=== PATIENT | male | born 1955 | race Caucasian/White ===

== ENCOUNTER 2016-09-05 18:39 | Observation (INO) | payer BC, OTHER ==
[2016-09-05] MEDS ORDERED: Morphine 2 MG/ML Syringe IVPUSH ONE (19:20)
[2016-09-05] MEDS ORDERED: Sodium Chloride 0.9% 1,000 ML IV ONE (19:20)
[2016-09-05] MEDS ORDERED: Sodium Chloride 0.9% 2.5 ML Syringe FLUSH PRN (19:20)
[2016-09-05] MEDS ORDERED: Ondansetron 4 MG/2 ML SDV IVPUSH ONE (19:20)
[2016-09-05] MEDS ORDERED: Pantoprazole 40 MG Vial IVPUSH ONE (19:20)
--- NOTE | 2016-09-05 19:25 | EDM.PDOC ---
ED HPI GENERAL MEDICAL PROBLEM - General Chief Complaint: Abdominal Pain Stated Complaint: SEVERE STOMACH PAIN Time Seen by Provider: 09/05/16 19:06 - History of Present Illness INITIAL COMMENTS - FREE TEXT/NARRATIVE: HISTORY AND PHYSICAL: History of present illness: The patient is a 61-year-old male with no stated medical problems who presents with upper abdominal indigestion and discomfort and bloating-like feeling that started on Wednesday, 5-1/2 days ago. He says that he felt very bloated and felt as indigestion on Wednesday with some nausea but did not have vomiting or diarrhea. The pain seemed to go away on its own and he did fine through the week although the discomfort was still always there in a dull like fashion but very minimal. The discomfort woke him this morning at 4:30 and he's been trying to address that through the day with [id number] antacids. He had one episode of vomiting which was small in volume and was self-induced. He has had normal bowel movements which are not black or bloody and he has had no diarrhea. He's had no fever chills chest pain or shortness of breath and no urinary complaints. The patient states that the pain feels like he has "eaten to Thanksgiving dinners". The patient states that 6 weeks ago he was in the ER at [facility] in [place] for dehydration and had an EKG labs and IV fluids and felt improved. At that time he states that he did not have abdominal pain. The patient is concerned about his gallbladder because he does eat a lot of fatty foods and in fact last evening ate spareribs for dinner. Today he has had no appetite due to the discomfort and fullness and has had limited intake. The patient denies any previous abdominal surgical history. The patient denies that the pain radiates to his lower abdomen area or to his flank Review of systems: As per history of present illness and below otherwise all systems reviewed and negative. Past medical history: As per history of present illness and as reviewed below otherwise noncontributory. Surgical history: As per history of present illness and as reviewed below otherwise noncontributory. Social history: No reported history of drug or alcohol abuse. Family history: As per history of present illness and as reviewed below otherwise noncontributory. Physical exam: General: Well-developed well-nourished male who is nontoxic and vital signs have been noted by me. Easily in the ED without any distress HEENT: Atraumatic, normocephalic, pupils reactive, negative for conjunctival pallor or scleral icterus, mucous membranes moist, throat clear, neck supple, nontender, trachea midline. Lungs: Clear to auscultation, breath sounds equal bilaterally, chest nontender. Heart: S1S2, regular, negative for clicks, rubs, or JVD. Abdomen: Soft, nondistended, with mild tenderness in the right upper abdomen as well as the epigastrium without rebound or guarding. Bowel sounds are hypoactive Negative for masses or hepatosplenomegaly. Negative for costovertebral tenderness. Pelvis: Stable nontender. Genitourinary: Deferred. Rectal: Deferred. Extremities: Atraumatic, negative for cords or calf pain. Neurovascular unremarkable. Neuro: Awake, alert, oriented. Cranial nerves II through XII unremarkable. Cerebellum unremarkable. Motor and sensory unremarkable throughout. Exam nonfocal. Diagnostics: EKG CBC CMP amylase lipase troponin UA CT scan of the abdomen and pelvis Therapeutics: IV fluids Zofran Protonix morphine 2138: Case discussed with our surgeon Dr. Edmondson she is aware of the CT scan. She would like an ultrasound to be performed and the patient was made aware of all testing results up to this point. 2326: Ultrasound report was obtained and the surgeon has artery reviewed the ultrasound and will come in to see the patient 2335: Dr. Edmondson is here and at bedside discussing the care plan with the patient 2340: Dr. Edmondson is admitting the patient and will operate on him and his discussing this care plan with him. Impression: Acute cholecystitis Definitive disposition and diagnosis as appropriate pending reevaluation and review of above. abdomen Pain Score (Numeric/FACES): 5 - Related Data Allergies Allergy/AdvReac Type Severity Reaction Status Date / Time Penicillins Allergy Rash Verified 09/05/16 18:58 Home Meds: Home Meds . [No Known Home Meds] 09/05/16 [History] Past Medical History HEENT History: Reports: None Cardiovascular History: Reports: None Respiratory History: Reports: None Gastrointestinal History: Reports: None Genitourinary History: Reports: None Musculoskeletal History: Reports: None Neurological History: Reports: None Psychiatric History: Reports: None Endocrine/Metabolic History: Reports: None Hematologic History: Reports: None Immunologic History: Reports: None Oncologic (Cancer) History: Reports: None Dermatologic History: Reports: None - Infectious Disease History Infectious Disease History: Reports: Measles, Mumps - Past Surgical History Neurological Surgical History: Reports: Other (See Below) Other Neurological Surgeries/Procedures: concussion Social & Family History - Family History Family Medical History: Noncontributory - Tobacco Use Smoking Status *Q: Never Smoker - Caffeine Use Caffeine Use: Reports: Coffee - Recreational Drug Use Recreational Drug Use: No ED ROS GENERAL - Review of Systems Review Of Systems: ROS reveals no pertinent complaints other than HPI. ED EXAM, GENERAL - Physical Exam Exam: See Below (See dictation) Course - Vital Signs Last Recorded V/S: Last Vital Signs Temp 36.6 C 09/05/16 18:58 Pulse 59 L 09/05/16 20:35 Resp 17 09/05/16 20:35 BP 142/71 H 09/05/16 20:35 Pulse Ox 97 09/05/16 20:35 - Orders/Labs/Meds Orders: Active Orders 24 hr Category Date Time Status Patient Status [ADT] Stat ADT 09/05/16 23:38 Ordered EKG Documentation Completion [RC] STAT Care 09/05/16 19:20 Active Abdomen Ltd [US] Stat Exams 09/05/16 21:38 Taken Abdomen Pelvis w Cont [CT] Stat Exams 09/05/16 19:20 Taken Sodium Chloride 0.9% [Saline Flush] Med 09/05/16 19:20 Active 10 ml FLUSH ASDIRECTED PRN Sodium Chloride 0.9% [Saline Flush] Med 09/05/16 19:20 Active 2.5 ml FLUSH ASDIRECTED PRN Saline Lock Insert [OM.PC] Stat Oth 09/05/16 19:19 Ordered Medication Orders Sodium Chloride (Saline Flush) 10 ml FLUSH ASDIRECTED PRN PRN Reason: Keep Vein Open Last Admin: 09/05/16 19:58 Dose: 10 ml Admin: 09/05/16 19:50 Dose: 10 ml Admin: 09/05/16 19:48 Dose: 10 ml Sodium Chloride (Saline Flush) 2.5 ml FLUSH ASDIRECTED PRN PRN Reason: Keep Vein Open Last Admin: 09/05/16 19:53 Dose: 2.5 ml Labs: Laboratory Tests 0509/05/16 09/05/16 Range/Units 19:45 19:45 19:45 WBC 9.45 (4.0-11.0) K/uL RBC 5.38 (4.50-5.90) M/uL Hgb 15.9 (13.0-17.0) g/dL Hct 44.5 (38.0-50.0) % MCV 82.7 (80.0-98.0) fL MCH 29.6 (27.0-32.0) pg MCHC 35.7 (31.0-37.0) g/dL RDW Std Deviation 38.2 (28.0-62.0) fl RDW Coeff of Liana 13 (11.0-15.0) % Plt Count 194 (150-400) K/uL MPV 10.20 (7.40-12.00) fL Neut % (Auto) 73.1 (48.0-80.0) % Lymph % (Auto) 16.4 (16.0-40.0) % [place] % (Auto) 9.7 (0.0-15.0) % Eos % (Auto) 0.7 (0.0-7.0) % Baso % (Auto) 0.1 (0.0-1.5) % Neut # (Auto) 6.9 H (1.4-5.7) K/uL Lymph # (Auto) 1.6 (0.6-2.4) K/uL [place] # (Auto) 0.9 H (0.0-0.8) K/uL Eos # (Auto) 0.1 (0.0-0.7) K/uL Baso # (Auto) 0.0 (0.0-0.1) K/uL Nucleated RBC % 0.0 /100WBC Nucleated RBCs # 0 K/uL Sodium 139 (136-146) mmol/L Potassium 3.8 (3.5-5.1) mmol/L Chloride 105 (98-110) mmol/L Carbon Dioxide 23 (21-31) mmol/L BUN 8 (6.0-23.0) mg/dL Creatinine 1.0 (0.6-1.5) mg/dL Est Cr Clr Drug Dosing 82.62 mL/min Estimated GFR (MDRD) > 60.0 ml/min Glucose 105 (60-110) mg/dL Calcium 9.8 (8.8-10.8) mg/dL Total Bilirubin 1.0 (0.1-1.5) mg/dL AST 20 (5-40) IU/L ALT 26 (8-54) IU/L Alkaline Phosphatase 48 (40-150) Troponin I < 0.10 (0.0-0.29) NG/ML Total Protein 7.3 (6.0-8.0) g/dL Albumin 4.5 (3.4-4.8) g/dL Globulin 2.8 (2.0-3.5) g/dL Albumin/Globulin Ratio 1.6 (1.3-2.8) Amylase 34 (10-90) U/L Lipase 20 (7-80) U/L Urine Color Urine Appearance Urine pH (5.0-8.0) Ur Specific [place] (1.001-1.035) Urine Protein (NEGATIVE) mg/dL Urine Glucose (UA) (NEGATIVE) mg/dL Urine Ketones (NEGATIVE) mg/dL Urine Occult Blood (NEGATIVE) Urine Nitrite (NEGATIVE) Urine Bilirubin (NEGATIVE) Urine Urobilinogen (<2.0) EU/dL Ur Leukocyte Esterase (NEGATIVE) Urine RBC (0-2/HPF) Urine WBC (0-5/HPF) Ur Epithelial Cells (NONE-FEW) Urine Bacteria (NEGATIVE) 09/05/16 Range/Units 19:46 WBC (4.0-11.0) K/uL RBC (4.50-5.90) M/uL Hgb (13.0-17.0) g/dL Hct (38.0-50.0) % MCV (80.0-98.0) fL MCH (27.0-32.0) pg MCHC (31.0-37.0) g/dL RDW Std Deviation (28.0-62.0) fl RDW Coeff of Liana (11.0-15.0) % Plt Count (150-400) K/uL MPV (7.40-12.00) fL Neut % (Auto) (48.0-80.0) % Lymph % (Auto) (16.0-40.0) % [place] % (Auto) (0.0-15.0) % Eos % (Auto) (0.0-7.0) % Baso % (Auto) (0.0-1.5) % Neut # (Auto) (1.4-5.7) K/uL Lymph # (Auto) (0.6-2.4) K/uL [place] # (Auto) (0.0-0.8) K/uL Eos # (Auto) (0.0-0.7) K/uL Baso # (Auto) (0.0-0.1) K/uL Nucleated RBC % /100WBC Nucleated RBCs # K/uL Sodium (136-146) mmol/L Potassium (3.5-5.1) mmol/L Chloride (98-110) mmol/L Carbon Dioxide (21-31) mmol/L BUN (6.0-23.0) mg/dL Creatinine (0.6-1.5) mg/dL Est Cr Clr Drug Dosing mL/min Estimated GFR (MDRD) ml/min Glucose (60-110) mg/dL Calcium (8.8-10.8) mg/dL Total Bilirubin (0.1-1.5) mg/dL AST (5-40) IU/L ALT (8-54) IU/L Alkaline Phosphatase (40-150) Troponin I (0.0-0.29) NG/ML Total Protein (6.0-8.0) g/dL Albumin (3.4-4.8) g/dL Globulin (2.0-3.5) g/dL Albumin/Globulin Ratio (1.3-2.8) Amylase (10-90) U/L Lipase (7-80) U/L Urine Color YELLOW Urine Appearance CLEAR Urine pH 7.0 (5.0-8.0) Ur Specific [place] <= 1.005 (1.001-1.035) Urine Protein NEGATIVE (NEGATIVE) mg/dL Urine Glucose (UA) NEGATIVE (NEGATIVE) mg/dL Urine Ketones NEGATIVE (NEGATIVE) mg/dL Urine Occult Blood NEGATIVE (NEGATIVE) Urine Nitrite NEGATIVE (NEGATIVE) Urine Bilirubin NEGATIVE (NEGATIVE) Urine Urobilinogen 0.2 (<2.0) EU/dL Ur Leukocyte Esterase NEGATIVE (NEGATIVE) Urine RBC NONE SEEN (0-2/HPF) Urine WBC 0-1 (0-5/HPF) Ur Epithelial Cells NOT SEEN (NONE-FEW) Urine Bacteria RARE (NEGATIVE) Meds: Medications Generic Name Dose Route Start Last Admin Trade Name Tara PRN Reason Stop Dose Admin Sodium Chloride 10 ml 09/05/16 19:20 09/05/16 19:58 Saline Flush FLUSH 10 ml ASDIRECTED PRN Administration Keep Vein Open Sodium Chloride 2.5 ml 09/05/16 19:20 09/05/16 19:53 Saline Flush FLUSH 2.5 ml ASDIRECTED PRN Administration Keep Vein Open Discontinued Medications Generic Name Dose Route Start Last Admin Trade Name Tara PRN Reason Stop Dose Admin Sodium Chloride 1,000 mls @ 999 mls/hr 09/05/16 19:20 09/05/16 19:47 Normal Saline IV 09/05/16 20:20 999 mls/hr STAT ONE Administration Iopamidol 95 ml 09/05/16 20:33 09/05/16 20:34 Isovue Multipack-370 (76%) IVPUSH 09/05/16 20:34 95 ml ONETIME STA Administration Morphine Sulfate 4 mg 09/05/16 19:20 09/05/16 19:50 Morphine IVPUSH 09/05/16 19:21 4 mg ONETIME ONE Administration Ondansetron HCl 4 mg 09/05/16 19:20 09/05/16 19:49 Zofran IVPUSH 09/05/16 19:21 4 mg ONETIME ONE Administration Pantoprazole Sodium 80 mg 09/05/16 19:20 09/05/16 19:54 Protonix Iv IVPUSH 09/05/16 19:21 80 mg .BOLUS ONE Administration Departure - Departure Time of Disposition: 23:40 Disposition: Refer to Observation Condition: good Clinical Impression: Cholecystitis - Discharge Information Forms: ED Department Discharge - My Orders Last 24 Hours: My Active Orders 09/05/16 19:19 Saline Lock Insert [OM.PC] Stat 09/05/16 19:20 EKG Documentation Completion [RC] STAT Abdomen Pelvis w Cont [CT] Stat Sodium Chloride 0.9% [Saline Flush] 10 ml FLUSH ASDIRECTED PRN Sodium Chloride 0.9% [Saline Flush] 2.5 ml FLUSH ASDIRECTED PRN 09/05/16 21:38 Abdomen Ltd [US] Stat 09/05/16 23:38 Patient Status [ADT] Stat - Assessment/Plan Last 24 Hours: My Active Orders 09/05/16 19:19 Saline Lock Insert [OM.PC] Stat 09/05/16 19:20 EKG Documentation Completion [RC] STAT Abdomen Pelvis w Cont [CT] Stat Sodium Chloride 0.9% [Saline Flush] 10 ml FLUSH ASDIRECTED PRN Sodium Chloride 0.9% [Saline Flush] 2.5 ml FLUSH ASDIRECTED PRN 09/05/16 21:38 Abdomen Ltd [US] Stat 09/05/16 23:38 Patient Status [ADT] Stat
[2016-09-05] MEDS: Sodium Chloride 0.9% 10 ML Syringe FLUSH PRN ×3 (19:48→19:58)
[2016-09-05 20:08] LABS: CHLORIDE,CL 105 mmol/L (98-110); SODIUM,NA 139 mmol/L (136-146)
[2016-09-05] MEDS ORDERED: Iopamidol 755 MG/ML 500 ML Multipack Bottle IVPUSH STA (20:33)
[2016-09-06] MEDS ORDERED: diphenhydrAMINE 50 MG/ML SDV IVPUSH PRN (00:07)
[2016-09-06] MEDS ORDERED: Ondansetron 4 MG/2 ML SDV IVPUSH PRN (00:07)
--- NOTE | 2016-09-06 00:30 | PCM.HP ---
H&P History of Present Illness - General Date of Service: 09/06/16 Admit Problem/Dx: Acute cholecystitis Source of Information: Patient History Limitations: Reports: No Limitations - History of Present Illness Initial Comments - Free Text/Narative: Patient is a 61 yo M who presents with acute onset of RUQ this morning @ 430am. The night before he had eaten ribs. He woke up at 430 feeling like he had indigestion and bloating with a focus of pain in the RUQ under the right subcostal area. He developed a similar pain last wednesday but this slowly went away after 12 hours. This was after a fatty meal as well. He denies nausea, vomiting, fevers, chills, malaise or change in his bowel habits. The pain has not worsened but did not go away so he presented to the ED for workup. abdomen Pain Score (Numeric/FACES): 2 - Related Data Allergies/Adverse Reactions: Allergies Allergy/AdvReac Type Severity Reaction Status Date / Time Penicillins Allergy Rash Verified 09/05/16 18:58 Home Medications: Home Meds . [No Known Home Meds] 09/05/16 [History] Past Medical History HEENT History: Reports: None Cardiovascular History: Reports: None Respiratory History: Reports: None Gastrointestinal History: Reports: None Genitourinary History: Reports: None Musculoskeletal History: Reports: None Neurological History: Reports: None Psychiatric History: Reports: None Endocrine/Metabolic History: Reports: None Hematologic History: Reports: None Immunologic History: Reports: None Oncologic (Cancer) History: Reports: None Dermatologic History: Reports: None - Infectious Disease History Infectious Disease History: Reports: Measles, Mumps - Past Surgical History Male Surgical History: Reports: Varicocele Resection Neurological Surgical History: Reports: Other (See Below) Other Neurological Surgeries/Procedures: concussion Social & Family History - Family History Family Medical History: Noncontributory - Tobacco Use Smoking Status *Q: Never Smoker - Caffeine Use Caffeine Use: Reports: Coffee - Recreational Drug Use Recreational Drug Use: No H&P Review of Systems - Review of Systems: Review Of Systems: See Below General: Reports: No Symptoms HEENT: Reports: No Symptoms Pulmonary: Reports: No Symptoms Cardiovascular: Reports: No Symptoms Gastrointestinal: Reports: Abdominal Pain, Decreased Appetite Genitourinary: Reports: No Symptoms Musculoskeletal: Reports: No Symptoms Skin: Reports: No Symptoms Psychiatric: Reports: No Symptoms Neurological: Reports: No Symptoms Hematologic/Lymphatic: Reports: No Symptoms Exam - Exam Exam: See Below - Vital Signs Vital Signs: Last Vital Signs Temp 36.6 C 09/05/16 18:58 Pulse 64 09/06/16 00:15 Resp 16 09/06/16 00:15 BP 160/83 H 09/06/16 00:15 Pulse Ox 97 09/06/16 00:15 Weight: 91.2 kg - Exam General: Alert, Oriented HEENT: Conjunctiva Clear, EOMI, Mucosa Moist & [place], Nares Patent, Pupils Reactive Neck: Supple Lungs: Clear to Auscultation, Normal Respiratory Effort Cardiovascular: Regular Rate, Regular Rhythm Abdomen: Normal Bowel Sounds, Soft, Swann's Sign, Other (small pin point umbilical hernia, easily reducible ) Back Exam: Normal Inspection Neuro Extensive - Mental Status: Alert, Oriented x3, Normal Mood/Affect, Normal Cognition, Memory Intact - Patient Data Result Diagrams: 09/05/16 19:45 09/05/16 19:45 *Q Meaningful Use (ADM) - VTE *Q VTE Criteria *Q: - Stroke *Q Stroke Criteria *Q: - AMI *Q AMI Criteria *Q: - Problem List (1) Cholecystitis SNOMED Code(s): 78124620 ICD Code: K81.9 - CHOLECYSTITIS, UNSPECIFIED Status: Acute Current Visit : Yes Problem List Initiated/Reviewed/Updated: Yes Orders Last 24hrs: Active Orders 24 hr Category Date Time Status Cefuroxime [Zinacef] 1.5 gm Med 09/06/16 06:00 Ordered Sodium Chloride 0.9% [Normal Saline] 50 ml IV Q8HR Medication Orders Diphenhydramine HCl (Benadryl) 25 mg IVPUSH Q4H PRN PRN Reason: Itching Hydromorphone HCl (Dilaudid) 0.5 mg IVPUSH Q1H PRN PRN Reason: Pain (severe 7-10) Lactated Ringer's (Ringers, Lactated) 1,000 mls @ 125 mls/hr IV ASDIRECTED BARB Cefuroxime Sodium 1.5 gm/ (Sodium Chloride) 50 mls @ 100 mls/hr IV Q8HR BARB Ondansetron HCl (Zofran) 4 mg IVPUSH Q6H PRN PRN Reason: Nausea/Vomiting Sodium Chloride (Saline Flush) 10 ml FLUSH ASDIRECTED PRN PRN Reason: Keep Vein Open Last Admin: 09/05/16 19:58 Dose: 10 ml Admin: 09/05/16 19:50 Dose: 10 ml Admin: 09/05/16 19:48 Dose: 10 ml Sodium Chloride (Saline Flush) 2.5 ml FLUSH ASDIRECTED PRN PRN Reason: Keep Vein Open Last Admin: 09/05/16 19:53 Dose: 2.5 ml Assessment/Plan Comment:: Patient has signs and symptoms of acute calculus cholecystitis. His CT of the abdomen showed thickened GB wall and pericholecystic fluid which was confirmed by US. He has no lab or imaging findings that would suggest choledocholithiasis. There is a chance this could be gangrenous but the only way to know is during surgery. He is mildly-moderately tender in the RUQ but states that the pain medication has helped. Early cholecystectomy, rather than delayed cholecystectomy (>7 days after admission), is preferable for patients who require hospitalization for acute cholecystitis and who are good candidates for cholecystectomy. He is healthy with no past medical problems. Will start him on antibiotics, start IVF, keep him NPO, and plan for surgery tomorrow. We discussed the pathophysiology of acute calculous cholecystitis. We discussed laparoscopic and open cholecystectomy. Should I be unable to perform this safely laparoscopically we will convert to open. Given that he is acutely inflamed, he is at increased risk for conversion to open. We discussed the risks including bleeding, infection, bile leak, and damage to surrounding structure. The patient is agreeable to blood products should he need them. We may need to leave a drain depending on the operative findings. He verbalized understanding and wishes to proceed.
[2016-09-06] MEDS: HYDROmorphone 1 MG/ML Syringe IVPUSH PRN ×2 (00:41→05:20)
[2016-09-06] MEDS: Lactated Ringers 1,000 ML IV SCH ×2 (00:50→09:03)
[2016-09-06 05:47] LABS: CHLORIDE,CL 107 mmol/L (98-110); SODIUM,NA 141 mmol/L (136-146)
[2016-09-06] MEDS ORDERED: Propofol 200 MG/20 ML SDV ONE (10:24)
[2016-09-06] MEDS ORDERED: Succinylcholine/Normal Saline 200 MG/10 ML Syringe ONE (10:24)
[2016-09-06] MEDS ORDERED: Lidocaine 2% 5 ML SDV ONE (10:24)
[2016-09-06] MEDS ORDERED: fentaNYL 250 MCG/5 ML SDV ONE (10:24)
[2016-09-06] MEDS ORDERED: Ondansetron 4 MG/2 ML SDV ONE (10:24)
[2016-09-06] MEDS ORDERED: Rocuronium 10 MG/ML 10 ML Syringe ONE (10:24)
[2016-09-06] MEDS ORDERED: Midazolam 1 MG/ML 2 ML SDV ONE (10:24)
[2016-09-06] MEDS ORDERED: Bupivacaine 0.5% 30 ML SDV ONE (11:26)
[2016-09-06] MEDS ORDERED: Phenylephrine/Normal Saline 100 MCG/ML 10 ML Syringe ONE (12:02)
[2016-09-06] MEDS ORDERED: ePHEDrine 50 MG/ML SDV ONE (12:06)
--- NOTE | 2016-09-06 12:19 | PCM.PREANE ---
Preanesthetic Assessment - Anesthesia/Transfusion/Family Hx Anesthesia History: Prior Anesthesia Without Reaction Transfusion History: No Prior Transfusion(s) - Review of Systems General: No Symptoms Pulmonary: No Symptoms Cardiovascular: No Symptoms Gastrointestinal: No symptoms Neurological: No Symptoms Other: Reports: None - Physical Assessment NPO Status Date: 09/06/16 NPO Status Time: 00:00 Pulse: 70 O2 Sat by Pulse Oximetry: 96 Respiratory Rate: 18 Blood Pressure: 97/50 Vital Signs: Last Vital Signs Temp 98.1 F 09/06/16 10:49 Pulse 66 09/06/16 10:49 Resp 18 09/06/16 10:49 BP 121/73 09/06/16 10:49 Pulse Ox 96 09/06/16 10:49 Height: 5 ft 11 in Weight: 91.2 kg ASA Class: 2E Mental Status: Alert & Oriented x3 Airway Class: Mallampati = 3 Dentition: Reports: Normal Dentition, Implants (x1) Thyro-Mental Finger Breadths: 3 Mouth Opening Finger Breadths: 3 ROM/Head Extension: Limited/Partial Lungs: Clear to auscultation, Normal respiratory effort Cardiovascular: Regular Rate, Regular Rhythm - Lab Values: Laboratory Last Values WBC 6.59 K/uL (4.0-11.0) 09/06/16 05:00 RBC 4.86 M/uL (4.50-5.90) 09/06/16 05:00 Hgb 14.1 g/dL (13.0-17.0) 09/06/16 05:00 Hct 41.3 % (38.0-50.0) 09/06/16 05:00 MCV 85.0 fL (80.0-98.0) 09/06/16 05:00 MCH 29.0 pg (27.0-32.0) 09/06/16 05:00 MCHC 34.1 g/dL (31.0-37.0) 09/06/16 05:00 RDW Std Deviation 39.5 fl (28.0-62.0) 09/06/16 05:00 RDW Coeff of Liana 13 % (11.0-15.0) 09/06/16 05:00 Plt Count 171 K/uL (150-400) 09/06/16 05:00 MPV 10.40 fL (7.40-12.00) 09/06/16 05:00 Neut % (Auto) 57.5 % (48.0-80.0) 09/06/16 05:00 Lymph % (Auto) 27.9 % (16.0-40.0) 09/06/16 05:00 [place] % (Auto) 12.7 % (0.0-15.0) 09/06/16 05:00 Eos % (Auto) 1.7 % (0.0-7.0) 09/06/16 05:00 Baso % (Auto) 0.2 % (0.0-1.5) 09/06/16 05:00 Neut # (Auto) 3.8 K/uL (1.4-5.7) 09/06/16 05:00 Lymph # (Auto) 1.8 K/uL (0.6-2.4) 09/06/16 05:00 [place] # (Auto) 0.8 K/uL (0.0-0.8) 09/06/16 05:00 Eos # (Auto) 0.1 K/uL (0.0-0.7) 09/06/16 05:00 Baso # (Auto) 0.0 K/uL (0.0-0.1) 09/06/16 05:00 Nucleated RBC % 0.0 /100WBC 09/06/16 05:00 Nucleated RBCs # 0 K/uL 09/06/16 05:00 Sodium 141 mmol/L (136-146) 09/06/16 05:00 Potassium 4.5 mmol/L (3.5-5.1) 09/06/16 05:00 Chloride 107 mmol/L (98-110) 09/06/16 05:00 Carbon Dioxide 27 mmol/L (21-31) 09/06/16 05:00 BUN 7 mg/dL (6.0-23.0) 09/06/16 05:00 Creatinine 1.1 mg/dL (0.6-1.5) 09/06/16 05:00 Est Cr Clr Drug Dosing 75.11 mL/min 09/06/16 05:00 Estimated GFR (MDRD) > 60.0 ml/min 09/06/16 05:00 Glucose 111 mg/dL (60-110) H 09/06/16 05:00 Calcium 9.0 mg/dL (8.8-10.8) 09/06/16 05:00 Total Bilirubin 0.9 mg/dL (0.1-1.5) 09/06/16 05:00 AST 17 IU/L (5-40) 09/06/16 05:00 ALT 21 IU/L (8-54) 09/06/16 05:00 Alkaline Phosphatase 43 (40-150) 09/06/16 05:00 Troponin I < 0.10 NG/ML (0.0-0.29) 09/05/16 19:45 Total Protein 5.9 g/dL (6.0-8.0) L 09/06/16 05:00 Albumin 3.8 g/dL (3.4-4.8) 09/06/16 05:00 Globulin 2.1 g/dL (2.0-3.5) 09/06/16 05:00 Albumin/Globulin Ratio 1.8 (1.3-2.8) 09/06/16 05:00 Amylase 34 U/L (10-90) 09/05/16 19:45 Lipase 20 U/L (7-80) 09/05/16 19:45 Urine Color YELLOW 09/05/16 19:46 Urine Appearance CLEAR 09/05/16 19:46 Urine pH 7.0 (5.0-8.0) 09/05/16 19:46 Ur Specific [place] <= 1.005 (1.001-1.035) 09/05/16 19:46 Urine Protein NEGATIVE mg/dL (NEGATIVE) 09/05/16 19:46 Urine Glucose (UA) NEGATIVE mg/dL (NEGATIVE) 09/05/16 19:46 Urine Ketones NEGATIVE mg/dL (NEGATIVE) 09/05/16 19:46 Urine Occult Blood NEGATIVE (NEGATIVE) 09/05/16 19:46 Urine Nitrite NEGATIVE (NEGATIVE) 09/05/16 19:46 Urine Bilirubin NEGATIVE (NEGATIVE) 09/05/16 19:46 Urine Urobilinogen 0.2 EU/dL (<2.0) 09/05/16 19:46 Ur Leukocyte Esterase NEGATIVE (NEGATIVE) 09/05/16 19:46 Urine RBC NONE SEEN (0-2/HPF) 09/05/16 19:46 Urine WBC 0-1 (0-5/HPF) 09/05/16 19:46 Ur Epithelial Cells NOT SEEN (NONE-FEW) 09/05/16 19:46 Urine Bacteria RARE (NEGATIVE) 09/05/16 19:46 - Allergies Allergies/Adverse Reactions: Allergies Allergy/AdvReac Type Severity Reaction Status Date / Time Penicillins Allergy Rash Verified 09/05/16 18:58 - Acknowledgements Anesthesia Type Planned: General Anesthesia (RSI) Pt an Appropriate Candidate for the Planned Anesthesia: Yes Alternatives and Risks of Anesthesia Discussed w Pt/Guardian: Yes Pt/Guardian Understands and Agrees with Anesthesia Plan: Yes PreAnesthesia Questionnaire HEENT History: Reports: None Cardiovascular History: Reports: Other (See Below) (New Hx of ectopic beats, PVC vs PAC) Respiratory History: Reports: None Gastrointestinal History: Reports: Cholelithiasis Genitourinary History: Reports: None Musculoskeletal History: Reports: None Neurological History: Reports: None Psychiatric History: Reports: Anxiety Endocrine/Metabolic History: Reports: None Hematologic History: Reports: None Immunologic History: Reports: None Oncologic (Cancer) History: Reports: None Dermatologic History: Reports: None - Infectious Disease History Infectious Disease History: Reports: Measles, Mumps - Past Surgical History Male Surgical History: Reports: Varicocele Resection Neurological Surgical History: Reports: Other (See Below) Other Neurological Surgeries/Procedures: concussion - SUBSTANCE USE Smoking Status *Q: Never Smoker Recreational Drug Use History: No - HOME MEDS Home Medications: Home Meds . [No Known Home Meds] 09/05/16 [History] - CURRENT (IN HOUSE) MEDS Current Meds: Current Medications Diphenhydramine HCl (Benadryl) 25 mg IVPUSH Q4H PRN PRN Reason: Itching Hydromorphone HCl (Dilaudid) 0.5 mg IVPUSH Q1H PRN PRN Reason: Pain (severe 7-10) Last Admin: 09/06/16 05:20 Dose: 0.5 mg Lactated Ringer's (Ringers, Lactated) 1,000 mls @ 125 mls/hr IV ASDIRECTED BARB Last Admin: 09/06/16 09:03 Dose: 125 mls/hr Cefuroxime Sodium 1.5 gm/ (Sodium Chloride) 50 mls @ 100 mls/hr IV Q8H BARB Last Admin: 09/06/16 09:05 Dose: 100 mls/hr Ondansetron HCl (Zofran) 4 mg IVPUSH Q6H PRN PRN Reason: Nausea/Vomiting Sodium Chloride (Saline Flush) 10 ml FLUSH ASDIRECTED PRN PRN Reason: Keep Vein Open Last Admin: 09/05/16 19:58 Dose: 10 ml Sodium Chloride (Saline Flush) 2.5 ml FLUSH ASDIRECTED PRN PRN Reason: Keep Vein Open Last Admin: 09/05/16 19:53 Dose: 2.5 ml Discontinued Medications Bupivacaine HCl (Marcaine 0.5%) Confirm Administered Dose 30 ml .ROUTE .STK-MED ONE Stop: 09/06/16 11:27 Ephedrine Sulfate (Ephedrine Sulfate) Confirm Administered Dose 50 mg .ROUTE .STK-MED ONE Stop: 09/06/16 12:07 Fentanyl (Sublimaze) Confirm Administered Dose 250 mcg .ROUTE .STK-MED ONE Stop: 09/06/16 10:25 Sodium Chloride (Normal Saline) 1,000 mls @ 999 mls/hr IV STAT ONE Stop: 09/05/16 20:20 Last Admin: 09/05/16 19:47 Dose: 999 mls/hr Cefuroxime Sodium 1.5 gm/ (Sodium Chloride) 50 mls @ 100 mls/hr IV Q8H [facility] Last Admin: 09/06/16 02:07 Dose: Not Given Cefuroxime Sodium 1.5 gm/ (Sodium Chloride) 50 mls @ 100 mls/hr IV Q8H [facility] Last Admin: 09/06/16 02:07 Dose: Not Given Cefuroxime Sodium 1.5 gm/ (Sodium Chloride) 50 mls @ 100 mls/hr IV Q8H [facility] Last Admin: 09/06/16 01:14 Dose: 100 mls/hr Iopamidol (Isovue Multipack-370 (76%)) 95 ml IVPUSH ONETIME STA Stop: 09/05/16 20:34 Last Admin: 09/05/16 20:34 Dose: 95 ml Lidocaine (Xylocaine-Mpf 2%) Confirm Administered Dose 5 ml .ROUTE .STK-MED ONE Stop: 09/06/16 10:25 Midazolam HCl (Versed 1 Mg/Ml) Confirm Administered Dose 2 mg .ROUTE .STK-MED ONE Stop: 09/06/16 10:25 Morphine Sulfate (Morphine) 4 mg IVPUSH ONETIME ONE Stop: 09/05/16 19:21 Last Admin: 09/05/16 19:50 Dose: 4 mg Ondansetron HCl (Zofran) 4 mg IVPUSH ONETIME ONE Stop: 09/05/16 19:21 Last Admin: 09/05/16 19:49 Dose: 4 mg Ondansetron HCl (Zofran) Confirm Administered Dose 4 mg .ROUTE .STK-MED ONE Stop: 09/06/16 10:25 Pantoprazole Sodium (Protonix Iv) 80 mg IVPUSH .BOLUS ONE Stop: 09/05/16 19:21 Last Admin: 09/05/16 19:54 Dose: 80 mg Phenylephrine HCl (Phenylephrine In Ns 100 Mcg/Ml) Confirm Administered Dose 1 mg .ROUTE .STK-MED ONE Stop: 09/06/16 12:03 Propofol (Diprivan 20 Ml) Confirm Administered Dose 200 mg .ROUTE .STK-MED ONE Stop: 09/06/16 10:25 Rocuronium [place] (Zemuron) Confirm Administered Dose 100 mg .ROUTE .STK-MED ONE Stop: 09/06/16 10:25 Succinylcholine Chloride (Succinylcholine In Ns Pf) Confirm Administered Dose 200 mg .ROUTE .STK-MED ONE Stop: 09/06/16 10:25
[2016-09-06] MEDS ORDERED: Phenylephrine 1% 10 MG/ML SDV ONE (12:30)
[2016-09-06] MEDS ORDERED: fentaNYL 100 MCG/2 ML SDV ONE (13:53)
[2016-09-06] MEDS ORDERED: Metoprolol Tartrate 5 MG/5 ML SDV ONE (14:12)
[2016-09-06] MEDS ORDERED: HYDROmorphone 2 MG/ML Syringe ONE (14:26)
[2016-09-06] MEDS ORDERED: fentaNYL 100 MCG/2 ML SDV IVPUSH PRN (14:49)
[2016-09-06] MEDS ORDERED: Cyclobenzaprine 5 MG Tab PO PRN (14:58)
--- NOTE | 2016-09-06 15:03 | PCM.OPNOTE ---
- General Post-Op/Procedure Note Date of Surgery/Procedure: 09/06/16 Operative Procedure(s): laparoscopic cholecystectomy Findings: Thickened and inflamed gallbladder with large stone impacted in the infundibulum Pre Op Diagnosis: acute cholecystitis Post-Op Diagnosis: same Anesthesia Technique: General ET tube Primary Surgeon: Yusra Edmondson Fluid Replacement, Intraop: 2,000 Output, Urine Amount: 800 EBL in mLs: 25 Condition: Fair Free Text/Narrative:: Intake & Output 09/06/16 09/06/16 09/06/16 06:59 14:59 22:59 Intake Total 0 1050 Output Total 0 850 Balance 0 200
--- NOTE | 2016-09-06 15:19 | PCM.POSTAN ---
POST ANESTHESIA ASSESSMENT - MENTAL STATUS Mental Status: alert, oriented - VITAL SIGNS Pulse Rate: 90 SaO2: 99 Resp Rate: 20 Blood Pressure: 123/70 - RESPIRATORY Respiratory Status: respiratory rate WNL, airway patent, O2 saturation stable - CARDIOVASCULAR CV Status: pulse rate WNL, blood pressure stable - GASTROINTESTINAL GI Status: no symptoms - PAIN Pain Score: 0 - POST OP HYDRATION Hydration Status: adequate & stable
[2016-09-06] MEDS: Acetaminophen/oxyCODONE 325-5 MG Tab PO PRN (18:28)
--- NOTE | 2016-09-06 19:21 | PCM.SURGPN ---
- General Info Date of Service: 09/06/16 Date of Surgery/Procedure: 09/06/16 POD#: 0 Post-Op Diagnosis: Acute cholecystitis Functional Status: Reports: pain controlled, tolerating diet, ambulating, urinating - Review of Systems General: Reports: No Symptoms HEENT: Reports: no symptoms Pulmonary: Reports: no symptoms Cardiovascular: Reports: No Symptoms Gastrointestinal: Reports: Other (Pain at incision sites) Musculoskeletal: Reports: no symptoms - Patient Data Vitals - most recent: Last Vital Signs Temp 36.6 C 09/06/16 18:00 Pulse 80 09/06/16 18:00 Resp 16 09/06/16 18:00 BP 108/61 09/06/16 18:00 Pulse Ox 95 09/06/16 18:00 Weight - most recent: 91.2 kg I&O - last 24 hours: Intake & Output 09/06/16 09/06/16 09/06/16 06:59 14:59 22:59 Intake Total 0 1050 6021 Output Total 0 850 2470 Balance 0 200 3551 Lab Results last 24 hrs: Laboratory Results - last 24 hr 09/06/16 09/06/16 Range/Units 05:00 05:00 WBC 6.59 (4.0-11.0) K/uL RBC 4.86 (4.50-5.90) M/uL Hgb 14.1 (13.0-17.0) g/dL Hct 41.3 (38.0-50.0) % MCV 85.0 (80.0-98.0) fL MCH 29.0 (27.0-32.0) pg MCHC 34.1 (31.0-37.0) g/dL RDW Std Deviation 39.5 (28.0-62.0) fl RDW Coeff of Liana 13 (11.0-15.0) % Plt Count 171 (150-400) K/uL MPV 10.40 (7.40-12.00) fL Neut % (Auto) 57.5 (48.0-80.0) % Lymph % (Auto) 27.9 (16.0-40.0) % [place] % (Auto) 12.7 (0.0-15.0) % Eos % (Auto) 1.7 (0.0-7.0) % Baso % (Auto) 0.2 (0.0-1.5) % Neut # (Auto) 3.8 (1.4-5.7) K/uL Lymph # (Auto) 1.8 (0.6-2.4) K/uL [place] # (Auto) 0.8 (0.0-0.8) K/uL Eos # (Auto) 0.1 (0.0-0.7) K/uL Baso # (Auto) 0.0 (0.0-0.1) K/uL Nucleated RBC % 0.0 /100WBC Nucleated RBCs # 0 K/uL Sodium 141 (136-146) mmol/L Potassium 4.5 (3.5-5.1) mmol/L Chloride 107 (98-110) mmol/L Carbon Dioxide 27 (21-31) mmol/L BUN 7 (6.0-23.0) mg/dL Creatinine 1.1 (0.6-1.5) mg/dL Est Cr Clr Drug Dosing 75.11 mL/min Estimated GFR (MDRD) > 60.0 ml/min Glucose 111 H (60-110) mg/dL Calcium 9.0 (8.8-10.8) mg/dL Total Bilirubin 0.9 (0.1-1.5) mg/dL AST 17 (5-40) IU/L ALT 21 (8-54) IU/L Alkaline Phosphatase 43 (40-150) Total Protein 5.9 L (6.0-8.0) g/dL Albumin 3.8 (3.4-4.8) g/dL Globulin 2.1 (2.0-3.5) g/dL Albumin/Globulin Ratio 1.8 (1.3-2.8) Med Orders - Current: Current Medications Cyclobenzaprine HCl (Flexeril) 5 mg PO TID PRN PRN Reason: Abdominal Pain Diphenhydramine HCl (Benadryl) 25 mg IVPUSH Q4H PRN PRN Reason: Itching Fentanyl (Sublimaze) 50 mcg IVPUSH Q5M PRN PRN Reason: Pain (severe 7-10) Stop: 09/07/16 14:50 Hydromorphone HCl (Dilaudid) 0.5 mg IVPUSH Q1H PRN PRN Reason: Pain (severe 7-10) Last Admin: 09/06/16 05:20 Dose: 0.5 mg Lactated Ringer's (Ringers, Lactated) 1,000 mls @ 125 mls/hr IV ASDIRECTED BARB Last Admin: 09/06/16 09:03 Dose: 125 mls/hr Cefuroxime Sodium 1.5 gm/ (Sodium Chloride) 50 mls @ 100 mls/hr IV Q8H BARB Last Admin: 09/06/16 17:02 Dose: 100 mls/hr Ondansetron HCl (Zofran) 4 mg IVPUSH Q6H PRN PRN Reason: Nausea/Vomiting Oxycodone/Acetaminophen (Percocet 325-5 Mg) 2 tab PO Q4H PRN PRN Reason: Abdominal Pain Last Admin: 09/06/16 18:28 Dose: 2 tab Sodium Chloride (Saline Flush) 10 ml FLUSH ASDIRECTED PRN PRN Reason: Keep Vein Open Last Admin: 09/05/16 19:58 Dose: 10 ml Sodium Chloride (Saline Flush) 2.5 ml FLUSH ASDIRECTED PRN PRN Reason: Keep Vein Open Last Admin: 09/05/16 19:53 Dose: 2.5 ml Discontinued Medications Bupivacaine HCl (Marcaine 0.5%) Confirm Administered Dose 30 ml .ROUTE .STK-MED ONE Stop: 09/06/16 11:27 Ephedrine Sulfate (Ephedrine Sulfate) Confirm Administered Dose 50 mg .ROUTE .STK-MED ONE Stop: 09/06/16 12:07 Fentanyl (Sublimaze) Confirm Administered Dose 250 mcg .ROUTE .STK-MED ONE Stop: 09/06/16 10:25 Fentanyl (Sublimaze) Confirm Administered Dose 100 mcg .ROUTE .STK-MED ONE Stop: 09/06/16 13:54 Hydromorphone HCl (Dilaudid) Confirm Administered Dose 2 mg .ROUTE .STK-MED ONE Stop: 09/06/16 14:27 Sodium Chloride (Normal Saline) 1,000 mls @ 999 mls/hr IV STAT ONE Stop: 09/05/16 20:20 Last Admin: 09/05/16 19:47 Dose: 999 mls/hr Cefuroxime Sodium 1.5 gm/ (Sodium Chloride) 50 mls @ 100 mls/hr IV Q8H [facility] Last Admin: 09/06/16 02:07 Dose: Not Given Cefuroxime Sodium 1.5 gm/ (Sodium Chloride) 50 mls @ 100 mls/hr IV Q8H [facility] Last Admin: 09/06/16 02:07 Dose: Not Given Cefuroxime Sodium 1.5 gm/ (Sodium Chloride) 50 mls @ 100 mls/hr IV Q8H [facility] Last Admin: 09/06/16 01:14 Dose: 100 mls/hr Iopamidol (Isovue Multipack-370 (76%)) 95 ml IVPUSH ONETIME STA Stop: 09/05/16 20:34 Last Admin: 09/05/16 20:34 Dose: 95 ml Lidocaine (Xylocaine-Mpf 2%) Confirm Administered Dose 5 ml .ROUTE .STK-MED ONE Stop: 09/06/16 10:25 Metoprolol Tartrate (Lopressor) Confirm Administered Dose 5 mg .ROUTE .STK-MED ONE Stop: 09/06/16 14:13 Midazolam HCl (Versed 1 Mg/Ml) Confirm Administered Dose 2 mg .ROUTE .STK-MED ONE Stop: 09/06/16 10:25 Morphine Sulfate (Morphine) 4 mg IVPUSH ONETIME ONE Stop: 09/05/16 19:21 Last Admin: 09/05/16 19:50 Dose: 4 mg Ondansetron HCl (Zofran) 4 mg IVPUSH ONETIME ONE Stop: 09/05/16 19:21 Last Admin: 09/05/16 19:49 Dose: 4 mg Ondansetron HCl (Zofran) Confirm Administered Dose 4 mg .ROUTE .STK-MED ONE Stop: 09/06/16 10:25 Pantoprazole Sodium (Protonix Iv) 80 mg IVPUSH .BOLUS ONE Stop: 09/05/16 19:21 Last Admin: 09/05/16 19:54 Dose: 80 mg Phenylephrine HCl (Phenylephrine In Ns 100 Mcg/Ml) Confirm Administered Dose 1 mg .ROUTE .STK-MED ONE Stop: 09/06/16 12:03 Phenylephrine HCl ([place]-Synephrine) Confirm Administered Dose 10 mg .ROUTE .STK- MED ONE Stop: 09/06/16 12:31 Propofol (Diprivan 20 Ml) Confirm Administered Dose 200 mg .ROUTE .STK-MED ONE Stop: 09/06/16 10:25 Rocuronium [place] (Zemuron) Confirm Administered Dose 100 mg .ROUTE .STK-MED ONE Stop: 09/06/16 10:25 Succinylcholine Chloride (Succinylcholine In Ns Pf) Confirm Administered Dose 200 mg .ROUTE .STK-MED ONE Stop: 09/06/16 10:25 - Exam Wound/Incisions: healing well, dressing dry and intact, drainage (scant) General: alert, oriented HEENT: Pupils equal, Pupils reactive Lungs: Clear to auscultation, Normal respiratory effort Cardiovascular: Regular Rate, Regular Rhythm Abdomen: soft, no tenderness, no distension Skin: warm, dry, intact Neurological: no new focal deficit Psy/Mental Status: alert, normal affect, normal mood - Problem List & Annotations (1) Cholecystitis SNOMED Code(s): 67813948 Code(s): K81.9 - CHOLECYSTITIS, UNSPECIFIED Status: Acute Current Visit: Yes - Problem List Review Problem List Initiated/Reviewed/Updated: Yes - My Orders Last 24 Hours: Active Orders 24 hr Category Date Time Status Bradycardia-Neuroaxis [employer] [RC] ROUTINE Care 09/06/16 14:49 Active Hypertension-Neuroaxis [employer] [RC] ROUTINE Care 09/06/16 14:49 Active Hypotension-Neuroaxis [employer] [RC] ROUTINE Care 09/06/16 14:49 Active Regular Diet [DIET] Diet 09/06/16 Dinner Active CBC W/O DIFF,HEMOGRAM [HEME] AM Lab 09/07/16 05:11 Ordered CBC W/O DIFF,HEMOGRAM [HEME] AM Lab 09/08/16 05:11 Ordered CMP [COMPREHENSIVE METABOLIC PN,CMP] [CHEM] AM Lab 09/07/16 05:11 Ordered CMP [COMPREHENSIVE METABOLIC PN,CMP] [CHEM] AM Lab 09/08/16 05:11 Ordered Acetaminophen/oxyCODONE [Percocet 325-5 MG] Med 09/06/16 14:58 Active 2 tab PO Q4H PRN Cefuroxime [Zinacef] 1.5 gm Med 09/06/16 09:00 Active Sodium Chloride 0.9% [Normal Saline] 50 ml IV Q8H Cyclobenzaprine [Flexeril] Med 09/06/16 14:58 Active 5 mg PO TID PRN fentaNYL [Sublimaze] Med 09/06/16 14:49 Active 50 mcg IVPUSH Q5M PRN Medication Orders Cyclobenzaprine HCl (Flexeril) 5 mg PO TID PRN PRN Reason: Abdominal Pain Diphenhydramine HCl (Benadryl) 25 mg IVPUSH Q4H PRN PRN Reason: Itching Fentanyl (Sublimaze) 50 mcg IVPUSH Q5M PRN PRN Reason: Pain (severe 7-10) Stop: 09/07/16 14:50 Hydromorphone HCl (Dilaudid) 0.5 mg IVPUSH Q1H PRN PRN Reason: Pain (severe 7-10) Last Admin: 09/06/16 05:20 Dose: 0.5 mg Admin: 09/06/16 00:41 Dose: 0.5 mg Lactated Ringer's (Ringers, Lactated) 1,000 mls @ 125 mls/hr IV ASDIRECTED [facility] Last Admin: 09/06/16 09:03 Dose: 125 mls/hr Infusion: 09/06/16 08:50 Dose: 125 mls/hr Admin: 09/06/16 00:50 Dose: 125 mls/hr Cefuroxime Sodium 1.5 gm/ (Sodium Chloride) 50 mls @ 100 mls/hr IV Q8H [facility] Last Admin: 09/06/16 17:02 Dose: 100 mls/hr Infusion: 09/06/16 09:35 Dose: 100 mls/hr Admin: 09/06/16 09:05 Dose: 100 mls/hr Ondansetron HCl (Zofran) 4 mg IVPUSH Q6H PRN PRN Reason: Nausea/Vomiting Oxycodone/Acetaminophen (Percocet 325-5 Mg) 2 tab PO Q4H PRN PRN Reason: Abdominal Pain Last Admin: 09/06/16 18:28 Dose: 2 tab Sodium Chloride (Saline Flush) 10 ml FLUSH ASDIRECTED PRN PRN Reason: Keep Vein Open Last Admin: 09/05/16 19:58 Dose: 10 ml Admin: 09/05/16 19:50 Dose: 10 ml Admin: 09/05/16 19:48 Dose: 10 ml Sodium Chloride (Saline Flush) 2.5 ml FLUSH ASDIRECTED PRN PRN Reason: Keep Vein Open Last Admin: 09/05/16 19:53 Dose: 2.5 ml - Assessment Assessment (Free Text/Narrative):: POD #0 lap cholecystectomy - Plan Plan (Free Text/Narrative):: -Diet: regular -Pain: IV dilaudid prn, po percocet, flexeril prn muscle spasms -D/C IVF -CBC and CMP in am -If afebrile, toelrating diet, ambulating and labs in am are within normal limits can D/C home tomorrow.
--- NOTE | 2016-09-06 20:36 | OR ---
SURGEON: CINDI ORDOÑEZ MD DATE OF PROCEDURE: 09/06/2016 PREOPERATIVE DIAGNOSIS: Acute cholecystitis. POSTOPERATIVE DIAGNOSIS: Acute cholecystitis. PROCEDURE PERFORMED: Laparoscopic cholecystectomy. ANESTHESIA: General endotracheal anesthesia. FLUIDS: 2000 mL crystalloid. URINE OUTPUT: 800 mL. ESTIMATED BLOOD LOSS: 25 mL. FINDINGS: Grossly inflamed and thickened gallbladder with a large stone impacting the infundibulum. COMPLICATIONS: None. INDICATIONS FOR OPERATION: The patient is a 61-year-old male who presented with acute right upper quadrant pain since 09/05/2016 starting at 4:30 in the morning. The patient had had similar pain 1 week before, but it resolved on its own. The patient had eaten ribs the night before this episode and woke up in the morning with right upper quadrant pain that was unrelenting. This was associated with nausea and bloating. The patient presented to the emergency room where workup was performed including a CT of the abdomen and pelvis and right upper quadrant ultrasound. These findings were consistent with acute cholecystitis. The patient's LFTs were within normal limits. The patient and I discussed the pathophysiology of acute cholecystitis. We discussed the need for removal of the gallbladder. I discussed both the laparoscopic and open cholecystectomy procedures. Should I be unable to perform the procedure laparoscopically, I would convert to open. We discussed the risks including bleeding, infection, damage to surrounding structures, and bile leak. The patient verbalized understanding and wishes to proceed. PROCEDURE IN DETAIL: The patient was brought to the operating room suite and placed on the OR table in supine position. A time-out was completed verifying the patient's name, age, date of , allergies, and procedure to be performed. General endotracheal anesthesia was induced. A Hernadez catheter was placed and the patient's left arm was tucked at his side. The abdomen was then prepped and draped in the usual standard fashion. The infraumbilical fold was infiltrated with 0.5% Marcaine. An incision was made using an 11 blade along the infraumbilical fold. Cautery was then used to dissect down to the subcutaneous fat. S-retractors were used to bluntly dissect down to the fascia. The fascia was grasped with 2 Mookie's and incised between these instruments. I was then able to visualize the peritoneum. This was grasped with a tonsil and brought into view. Metzenbaum scissors were used to incise this tissue layer allowing me entrance into the abdominal cavity. A 12-mm blunt tip trocar was inserted into the abdomen and the abdomen insufflated to a pressure of 13 mmHg. A 5 mm 30 degree scope was inserted into the trocar and the area underneath my incision was inspected. There appeared to be no injury to any of the bowel or underlying tissue at this level. Three more 5-mm trocars were placed under direct visualization in the following locations; one in the right epigastric area, one in the right subcostal margin along the midclavicular line, one along the right flank and atraumatic. The patient was then placed into reverse Trendelenburg position and airplaned slightly to the left. I attempted to grab the dome of the gallbladder with an atraumatic grasper. The gallbladder wall was thickened and edematous. It was also distended. An aspiration needle was brought in and I attempted to aspirate the gallbladder to allow for better purchase. I was unable to villavicencio through the wall of the gallbladder due to the amount of inflammation. Using my atraumatic grasper, I was able to place it laterally along the gallbladder wall and obtained good purchase into the dome of the gallbladder. This was then retracted cranially and to the right. This exposed the patient's infundibulum and the cystic duct. The junction of these two structures was extremely edematous with thickened fat and perineum overlying it. I started by incising the peritoneum overlying the infundibulum to allow visualization of the cystic plate. Using meticulous dissection, suctioning, and cautery, I was able to identify the lower 3rd of the cystic plate including the cystic artery and the cystic duct. The cystic duct itself was thickened and inflamed. I attempted to place anup across it; however given how thickened the structure was, the anup were unable to transverse the cystic duct adequately. The decision was made to instead staple across this using an Endo-RAY stapler with a 45-mm blue load. The right epigastric port site was then upsized to a 12-mm port. This allowed me to place my Endo-RAY stapler through into the abdomen. This was fired across the cystic duct as close to the infundibulum as possible. This stapled and transected the gallbladder at that level. Anup were then placed across the cystic artery which was doubly clipped and ligated. Electrocautery was then used to dissect the gallbladder off the remainder of the gallbladder fossa. This was very difficult given the degree of inflammation surrounding the gallbladder wall itself. The gallbladder was able to be successfully dissected off the liver without getting into the gallbladder itself. The gallbladder was placed in an EndoCatch bag and removed through the 12-mm port in the right epigastric area. The large stone in the gallbladder itself made this difficult, and I had to extend my incision to allow the stone to pass through the anterior fascia. I then placed my hand in the 12-mm port site to allow the abdomen to re - insufflate, so that I could inspect my operative site. The gallbladder fossa appeared slightly oozy, but there was no angel luis bleeding from along this. There was pulsatile motion at this cystic artery stump. There was no leakage from the cystic duct stump. The abdomen was irrigated with 3-4 L of normal saline until it ran clear. The remaining 5-mm ports were then removed under direct visualization and the 12-mm port removed as well. The abdomen was allowed to desufflate. I closed the 12-mm right epigastric port site with interrupted 0 Vicryl along the peritoneum and posterior wall fascia. I then closed the anterior rectus fascia with a running 3-0 Vicryl stitch. The skin over the area was then closed with a running 4-0 Monocryl suture. Before completely closing the site, I anesthetized the fascia with 0.5% Marcaine plain. The 12-mm port site along the infraumbilical fold was then closed. I used an interrupted [id number] 0 Vicryl suture to close the fascia at this site. I anesthetized the fascia with 0.5% Marcaine. I closed the skin over this site with interrupted 3-0 Vicryl in the subcutaneous fat and a running 4-0 Monocryl suture in the skin. The 5-mm port sites were closed with interrupted 4-0 Monocryl sutures. Steri-Strips and sterile dressings were applied. All counts were complete and correct at the end of the case. The patient was extubated and taken to PACU in stable condition. RUSSEL BOND /[id number] TAWNY
--- NOTE | 2016-09-07 05:06 | PCM48HPAN ---
Post Anesthesia Note - EVALUATION WITHIN 48HRS OF ANESTHETIC Vital Signs in Normal Range: Yes Patient Participated in Evaluation: Yes Respiratory Function Stable: Yes Airway Patent: Yes Cardiovascular Function Stable: Yes Hydration Status Stable: Yes Pain Control Satisfactory: Yes Nausea and Vomiting Control Satisfactory: Yes Mental Status Recovered: Yes
[2016-09-07] MEDS: Acetaminophen/oxyCODONE 325-5 MG Tab PO PRN ×2 (05:17→09:13)
[2016-09-07 05:50] LABS: CHLORIDE,CL 107 mmol/L (98-110); SODIUM,NA 141 mmol/L (136-146)
[2016-09-07 07:58] VITALS: BP 92/53
--- NOTE | 2016-09-07 09:06 | PCM.DCSUM1 ---
Discharge Summary - Hospital Course Free Text/Narrative:: Patient is a 61 yo male who presented with >12 hours of RUQ abdominal pain after eating ribs the night before. He had a similar episode one week prior that resolved on its own. This episode was more severe and associated with nausea and bloating. Work up in the ER showed acute cholecystitits with no evidence of choledocholithiasis. The decision was made to proceed to the OR for a laparoscopic possible open cholecystectomy. He was found to have a grossly inflamed and distended gallbladder with a large gallstone impacted in the infundibulum. The case was able to be performed laparoscopically with no immediate complications. The patient did well post operatively. His diet was advanced to regular without difficulty. His abdominal pain is well managed with oral narcotics. His vitals remained stable and his postoperative labs were normal. On physical exam his abdomen is nontender, soft, and dressings are intact with scant drainage. He was cleared for discharge home. - Discharge Data Discharge Date: 09/07/16 Discharge Disposition: Home, Self-Care 01 Condition: Fair - Discharge Diagnosis/Problem(s) (1) Cholecystitis SNOMED Code(s): 50995243 ICD Code: K81.9 - CHOLECYSTITIS, UNSPECIFIED Status: Acute Current Visit : Yes - Patient Summary/Data Operative Procedure(s) Performed: laparoscopic cholecystectomy Complications: none Labs Pending at D/C: none - Patient Instructions Diet: Regular Diet as Tolerated Diet, Other: Low fat diet for one month Activity: No Lifting Over 20 Pounds (for 6 weeks) Driving: Do Not Drive Driving, Other: While on narcotic medications and for the first week after surgery Showering/Bathing: No Showering (until tomorrow afternoon), No Tub Bathing/ Swimming (for 2 weeks ) Wound/Incision Care: Keep Operative Site/Wound Site Clean and Dry Notify Provider of: Fever, Increased Pain, Swelling and Redness, Drainage, Nausea and/or Vomiting - Discharge Plan Prescriptions/Med Rec: Acetaminophen/oxyCODONE [Percocet 325-5 MG] 2 tab PO Q4H PRN #60 tablet PRN Reason: Abdominal Pain Cyclobenzaprine [Flexeril] 5 mg PO TID PRN #30 tablet PRN Reason: spasm Home Medications: Home Meds Acetaminophen/oxyCODONE [Percocet 325-5 MG] 2 tab PO Q4H PRN #60 tablet [Rx] Cyclobenzaprine [Flexeril] 5 mg PO TID PRN #30 tablet 09/07/16 [Rx] Patient Handouts: Cyclobenzaprine tablets, Acetaminophen; Oxycodone capsules, Laparoscopic Cholecystectomy, Care After, Cholecystitis, [id number] Forms: ED Department Discharge Referrals: [facility] [Outside] Yusra Edmondson MD [Physician] - 09/22/16 10:15 am PCP,None [Primary Care Provider] - - Discharge Summary/Plan Comment DC Time >30 min.: No - General Info Date of Service: 09/07/16 Subjective Update: Patient slept through the night. Abdomen was sore this am until patient took po pain meds. He is tolerating a diet. He has not passed gas yet. Mild irritation in back of throat from ET tube and slight dysuria with first urination after surgery. Functional Status: Reports: pain controlled, tolerating diet, ambulating, urinating - Review of Systems General: Reports: No Symptoms HEENT: Reports: no symptoms Pulmonary: Reports: no symptoms Cardiovascular: Reports: No Symptoms Gastrointestinal: Reports: No symptoms Genitourinary: Reports: no symptoms Musculoskeletal: Reports: no symptoms Skin: Reports: no symptoms - Patient Data Vitals - Most Recent: Last Vital Signs Temp 37.0 C 09/07/16 07:56 Pulse 77 09/07/16 07:56 Resp 16 09/07/16 07:56 BP 92/53 L 09/07/16 07:56 Pulse Ox 92 L 09/07/16 07:56 Weight - Most Recent: 91.2 kg I&O - Last 24 hours: Intake & Output 09/06/16 09/07/16 09/07/16 22:59 06:59 14:59 Intake Total 6021 1360 Output Total 2470 1010 Balance 3551 350 Lab Results - Last 24 hrs: Laboratory Results - last 24 hr 09/07/16 09/07/16 Range/Units 05:15 05:15 WBC 5.79 (4.0-11.0) K/uL RBC 4.22 L (4.50-5.90) M/uL Hgb 12.3 L (13.0-17.0) g/dL Hct 36.5 L (38.0-50.0) % MCV 86.5 (80.0-98.0) fL MCH 29.1 (27.0-32.0) pg MCHC 33.7 (31.0-37.0) g/dL RDW Std Deviation 41.5 (28.0-62.0) fl RDW Coeff of Liana 13 (11.0-15.0) % Plt Count 149 L (150-400) K/uL MPV 10.10 (7.40-12.00) fL Nucleated RBC % 0.0 /100WBC Nucleated RBCs # 0 K/uL Sodium 141 (136-146) mmol/L Potassium 4.3 (3.5-5.1) mmol/L Chloride 107 (98-110) mmol/L Carbon Dioxide 27 (21-31) mmol/L BUN 9 (6.0-23.0) mg/dL Creatinine 1.1 (0.6-1.5) mg/dL Est Cr Clr Drug Dosing 75.11 mL/min Estimated GFR (MDRD) > 60.0 ml/min Glucose 109 (60-110) mg/dL Calcium 8.4 L (8.8-10.8) mg/dL Total Bilirubin 0.6 (0.1-1.5) mg/dL AST 27 (5-40) IU/L ALT 36 (8-54) IU/L Alkaline Phosphatase 39 L (40-150) Total Protein 5.4 L (6.0-8.0) g/dL Albumin 3.2 L (3.4-4.8) g/dL Globulin 2.2 (2.0-3.5) g/dL Albumin/Globulin Ratio 1.5 (1.3-2.8) Med Orders - Current: Current Medications Cyclobenzaprine HCl (Flexeril) 5 mg PO TID PRN PRN Reason: Abdominal Pain Last Admin: 09/07/16 05:17 Dose: 5 mg Diphenhydramine HCl (Benadryl) 25 mg IVPUSH Q4H PRN PRN Reason: Itching Fentanyl (Sublimaze) 50 mcg IVPUSH Q5M PRN PRN Reason: Pain (severe 7-10) Stop: 09/07/16 14:50 Hydromorphone HCl (Dilaudid) 0.5 mg IVPUSH Q1H PRN PRN Reason: Pain (severe 7-10) Last Admin: 09/06/16 05:20 Dose: 0.5 mg Cefuroxime Sodium 1.5 gm/ (Sodium Chloride) 50 mls @ 100 mls/hr IV Q8H BARB Last Admin: 09/07/16 08:58 Dose: 100 mls/hr Ondansetron HCl (Zofran) 4 mg IVPUSH Q6H PRN PRN Reason: Nausea/Vomiting Oxycodone/Acetaminophen (Percocet 325-5 Mg) 2 tab PO Q4H PRN PRN Reason: Abdominal Pain Last Admin: 09/07/16 05:17 Dose: 2 tab Sodium Chloride (Saline Flush) 10 ml FLUSH ASDIRECTED PRN PRN Reason: Keep Vein Open Last Admin: 09/05/16 19:58 Dose: 10 ml Sodium Chloride (Saline Flush) 2.5 ml FLUSH ASDIRECTED PRN PRN Reason: Keep Vein Open Last Admin: 09/05/16 19:53 Dose: 2.5 ml Discontinued Medications Bupivacaine HCl (Marcaine 0.5%) Confirm Administered Dose 30 ml .ROUTE .STK-MED ONE Stop: 09/06/16 11:27 Ephedrine Sulfate (Ephedrine Sulfate) Confirm Administered Dose 50 mg .ROUTE .STK-MED ONE Stop: 09/06/16 12:07 Fentanyl (Sublimaze) Confirm Administered Dose 250 mcg .ROUTE .STK-MED ONE Stop: 09/06/16 10:25 Fentanyl (Sublimaze) Confirm Administered Dose 100 mcg .ROUTE .STK-MED ONE Stop: 09/06/16 13:54 Hydromorphone HCl (Dilaudid) Confirm Administered Dose 2 mg .ROUTE .STK-MED ONE Stop: 09/06/16 14:27 Sodium Chloride (Normal Saline) 1,000 mls @ 999 mls/hr IV STAT ONE Stop: 09/05/16 20:20 Last Admin: 09/05/16 19:47 Dose: 999 mls/hr Lactated Ringer's (Ringers, Lactated) 1,000 mls @ 125 mls/hr IV ASDIRECTED BARB Last Admin: 09/06/16 09:03 Dose: 125 mls/hr Cefuroxime Sodium 1.5 gm/ (Sodium Chloride) 50 mls @ 100 mls/hr IV Q8H [facility] Last Admin: 09/06/16 02:07 Dose: Not Given Cefuroxime Sodium 1.5 gm/ (Sodium Chloride) 50 mls @ 100 mls/hr IV Q8H [facility] Last Admin: 09/06/16 02:07 Dose: Not Given Cefuroxime Sodium 1.5 gm/ (Sodium Chloride) 50 mls @ 100 mls/hr IV Q8H [facility] Last Admin: 09/06/16 01:14 Dose: 100 mls/hr Iopamidol (Isovue Multipack-370 (76%)) 95 ml IVPUSH ONETIME STA Stop: 09/05/16 20:34 Last Admin: 09/05/16 20:34 Dose: 95 ml Lidocaine (Xylocaine-Mpf 2%) Confirm Administered Dose 5 ml .ROUTE .STK-MED ONE Stop: 09/06/16 10:25 Metoprolol Tartrate (Lopressor) Confirm Administered Dose 5 mg .ROUTE .STK-MED ONE Stop: 09/06/16 14:13 Midazolam HCl (Versed 1 Mg/Ml) Confirm Administered Dose 2 mg .ROUTE .STK-MED ONE Stop: 09/06/16 10:25 Morphine Sulfate (Morphine) 4 mg IVPUSH ONETIME ONE Stop: 09/05/16 19:21 Last Admin: 09/05/16 19:50 Dose: 4 mg Ondansetron HCl (Zofran) 4 mg IVPUSH ONETIME ONE Stop: 09/05/16 19:21 Last Admin: 09/05/16 19:49 Dose: 4 mg Ondansetron HCl (Zofran) Confirm Administered Dose 4 mg .ROUTE .STK-MED ONE Stop: 09/06/16 10:25 Pantoprazole Sodium (Protonix Iv) 80 mg IVPUSH .BOLUS ONE Stop: 09/05/16 19:21 Last Admin: 09/05/16 19:54 Dose: 80 mg Phenylephrine HCl (Phenylephrine In Ns 100 Mcg/Ml) Confirm Administered Dose 1 mg .ROUTE .STK-MED ONE Stop: 09/06/16 12:03 Phenylephrine HCl (Randy-Synephrine) Confirm Administered Dose 10 mg .ROUTE .STK- MED ONE Stop: 09/06/16 12:31 Propofol (Diprivan 20 Ml) Confirm Administered Dose 200 mg .ROUTE .STK-MED ONE Stop: 09/06/16 10:25 Rocuronium [place] (Zemuron) Confirm Administered Dose 100 mg .ROUTE .STK-MED ONE Stop: 09/06/16 10:25 Succinylcholine Chloride (Succinylcholine In Ns Pf) Confirm Administered Dose 200 mg .ROUTE .STK-MED ONE Stop: 09/06/16 10:25 - Exam General: Reports: alert, oriented HEENT: Reports: Pupils equal, Pupils reactive Lungs: Reports: Clear to auscultation, Normal respiratory effort Cardiovascular: Reports: Regular Rate, Regular Rhythm Abdomen: Reports: soft, no tenderness, no distension Skin: Reports: warm, dry, intact Wound/Incisions: Reports: dressing dry and intact Neurological: Reports: no new focal deficit Psy/Mental Status: Reports: alert, normal affect, normal mood *Q Meaningful Use (DIS) - VTE *Q VTE Criteria *Q: - Stroke *Q Stroke Criteria *Q: - AMI *Q AMI Criteria *Q:
--- NOTE | 2016-09-07 15:30 | CT ---
EXAM DATE: 09/06/16 PATIENT'S AGE: 61 Patient: BEV TARIQ Facility: [place], [place] Site . Site : 1955 Study: CT Abdomen/Pelvis W CONT [id number]/13/2017 8:37:10 PM Ordering Physician: Breanna Renteria Final Report: INDICATION: Stomach pain for 8 hours TECHNIQUE: CT abdomen and pelvis acquired with 100 cc Isovue 370 IV contrast. COMPARISON: None FINDINGS: Lower chest: Unremarkable. Liver: Unremarkable. Spleen: Unremarkable. Pancreas: Unremarkable. Gallbladder and bile ducts: There is pericholecystic fluid versus gallbladder wall thickening. Gallbladder sludge versus stones within the gallbladder lumen. No biliary ductal dilatation. Adrenal glands: Unremarkable. Kidneys: Unremarkable. GI tract: Unremarkable. Appendix is normal. Vascular structures: Unremarkable. Lymph nodes: Unremarkable. Miscellaneous: Small fat containing umbilical hernia. Pelvic Organs: The prostate gland is enlarged. Bones: Unremarkable for age. IMPRESSION: Findings are highly suspicious for acute cholecystitis. Right upper quadrant ultrasound would be useful for further evaluation. Enlarged prostate gland. Small fat containing umbilical hernia. Dictated by Marcela Nobles MD @ Sep 05 2016 8:56PM (Electronic Signature) Report Signed by Proxy. [facility] HOSPITALJadyn
--- NOTE | 2016-09-07 15:37 | US ---
EXAM DATE: 09/06/16 PATIENT'S AGE: 61 Patient: BEV TARIQ Facility: [place], [place] Site . Site : 1955 Study: US Abdomen [id number]/13/2017 10:53:04 PM Ordering Physician: Breanna Renteria Final Report: INDICATION: Right upper quadrant pain TECHNIQUE: Ultrasound abdomen limited. Sonographic images of the right upper quadrant were obtained using grijalva-scale and color Doppler images. COMPARISON: A CT scan from the same date FINDINGS: Liver: Normal in size and echotexture. No masses. No intrahepatic biliary dilatation. Gallbladder: Cholelithiasis with a thickened, mildly striated gallbladder wall measuring up to 6 millimeters. Apparent small pericholecystic fluid. Common bile duct: 3 mm. Pancreas: No discrete abnormalities seen in the visualized portions. Right kidney: 9.7 x 5.3 x 5.0 cm. Normal echotexture and cortex. No masses, stones, or hydronephrosis. IMPRESSION: Cholelithiasis with a thickened, mildly striated gallbladder wall and small pericholecystic fluid, compatible with acute, possibly gangrenous, cholecystitis , in the correct clinical setting. Dictated by Modesto Juárez MD @ 09/05/2016 11:18:10 PM Dictated by: Modesto Juárez MD @ 09/05/2016 23:18:15 (Electronic Signature) Report Signed by Proxy. [facility]ENTERJadyn
== END 2016-09-07 09:50 | disposition home or self-care (01) ==
LOC: MW.ED 18:39 → MW.MS 09-06 00:16
PROVIDERS: ADMIT Surgery; ATTEND Surgery
DX: K80.12 Calculus of gallbladder with acute and chronic cholecystitis without obstruction (principal); Z98.890 Other specified postprocedural states
CPT/HCPCS: 36415; 47562; 74177; 76705; 80053; 81001; 82150; 83690; 84484; 85025; 85027; 93005; 96361; 96374; 96375; 99285; A9270; C9113; J0697; J1170; J2250; J2270; J2370; J2405; J3010; J7040; J7050; J7120; Q9967; 00790; 88304; 96365; 96366; 96376; G0378; J2704